=== PATIENT | female | born 1945 | race Caucasian/White ===

== ENCOUNTER 2020-04-09 09:20 | Outpatient (CLI) | payer MEDICARE, SELFPAY ==
--- NOTE | ~2020-04-09 | MM_ITS ---
EXAMINATION: MM screening [facility] BI w bobby HISTORY: Screening mammogram TECHNIQUE: Craniocaudal and mediolateral oblique 3-D tomosynthesis images were obtained and synthetic 2-D images were generated. CAD analysis was submitted and interpreted. COMPARISON: 02/09/2018, 05/05/2016, 02/14/2014 BREAST PARENCHYMAL COMPOSITION: The breasts are heterogeneously dense, which may obscure small masses . FINDINGS: Scattered benign-appearing calcifications are present. There is no evidence of suspicious m ass, calcification, or architectural distortion to suggest malignancy in either breast. There has bee n no suspicious interval change. IMPRESSION: 1. No mammographic evidence of malignancy. 2. Recommend routine screening mammography in one year. BI-RADS Category 2: Benign finding(s). Reviewed, dictated and finalized at location A.
== END 2020-04-09 09:21 | disposition home or self-care (01) ==
PROVIDERS: PCP Internal Medicine; Visit Provider Internal Medicine
DX: Z12.31 Encounter for screening mammogram for malignant neoplasm of breast (principal)
CPT/HCPCS: 77063; 77067

== ENCOUNTER 2021-06-30 10:28 | Outpatient (CLI) | payer MEDICARE, SELFPAY ==
--- NOTE | ~2021-06-30 | MM_ITS ---
EXAMINATION: MM screening [facility] BI w bobby HISTORY: Screening mammogram TECHNIQUE: Craniocaudal and mediolateral oblique 3-D tomosynthesis images were obtained and synthetic 2-D images were generated. CAD analysis was submitted and interpreted. COMPARISON: 04/09/2020, 02/09/2018, 05/05/2016 BREAST PARENCHYMAL COMPOSITION: The breasts are heterogeneously dense, which may obscure small masses . FINDINGS: There is no evidence of suspicious mass, calcification, or architectural distortion to sugg est malignancy in either breast. There has been no suspicious interval change. IMPRESSION: 1. No mammographic evidence of malignancy. 2. Recommend routine screening mammography in one year. BI-RADS Category 2: Benign finding(s). Reviewed, dictated and finalized at location A. GATOR HUNTER
== END 2021-06-30 10:29 | disposition home or self-care (01) ==
LOC: ANHIMG 10:31
PROVIDERS: PCP Internal Medicine; Visit Provider Internal Medicine
DX: Z12.31 Encounter for screening mammogram for malignant neoplasm of breast (principal)
CPT/HCPCS: 77063; 77067

== ENCOUNTER 2022-07-02 10:44 | Outpatient (CLI) | payer MEDICARE, SELFPAY ==
--- NOTE | ~2022-07-02 | MM_ITS ---
EXAMINATION: MM screening [facility] w bobby HISTORY: Screening TECHNIQUE: Craniocaudal and mediolateral oblique 3-D tomosynthesis images were obtained and synthetic 2-D images were generated. CAD analysis was submitted and interpreted. COMPARISON: Comparison to multiple prior studies sequentially, with oldest reviewed study dated 09/19. BREAST PARENCHYMAL COMPOSITION: The breasts are heterogeneously dense, which may obscure small masses . FINDINGS: There is no evidence of suspicious mass, calcification, or architectural distortion to sugg est malignancy in either breast. There has been no suspicious interval change. IMPRESSION: 1. No mammographic evidence of malignancy. 2. Recommend routine screening mammography in one year. BI-RADS Category 1: Negative Reviewed, dictated and finalized at location A. EGATE CONVEYOR OPERATOR
== END 2022-07-02 10:45 | disposition home or self-care (01) ==
PROVIDERS: PCP Internal Medicine; Visit Provider Internal Medicine
DX: Z12.31 Encounter for screening mammogram for malignant neoplasm of breast (principal)
CPT/HCPCS: 77063; 77067

== ENCOUNTER 2024-01-24 11:00 | Outpatient (RCR) | payer MEDICARE, SELFPAY ==
--- NOTE | 2023-12-20 12:37 | OPREHPOC ---
Outpatient Therapy Plan of Care This is a Multidisciplinary Plan of Care that may contain components documented by all disciplines (PT, OT, and ST.) PT Problem 1 PT Problem #1 Knowledge Deficit PT Goal 1 Goal [place]ickey with HEP Target Visit 4 PT Problem 2 PT Problem #2 Impaired Range of Motion PT Goal 1 Goal Improve R knee flexion to 120+ degrees to improve functional squat Target Visit 10 PT Goal 2 Goal Demonstrate 2 cm+ reduction in knee joint line edema measure indicating soft tissue healing Target Visit 10 PT Problem 3 PT Problem #3 Impaired Strength PT Goal 1 Goal Improve gross R knee strength to 5/5 to improve stability with walking and single leg activity Target Visit 10 PT Goal 2 Goal Improve yani hip strength to 4+/5 to improve stability with walking and ADLs Target Visit 10 PT Problem 4 PT Problem #4 Impaired Gait PT Goal 1 Goal Ambulate independently of AD Target Visit 10
--- NOTE | 2023-12-20 12:37 | PTOPEVAL1 ---
Assessment and note entered by Jeffrey Chappell, PT Evaluation Information Assessment Status Evaluation Diagnosis History of Right TKA, Primary osteoarthritis Onset 11/15/23 Subjective Information Reports that she has been noticing some pain in the back and bilateral knee following Right TKA in November. She is really limited right now by pain in knee and back. She is not currently taking pain medication outside of Tylenol. Patient was independent prior to surgery. She has 14 stairs into basement and has started working on them. She has been doing home health up until now. She has no trouble sleeping. Her swelling is all base don dependence as it occurs as soon as she gets up in the morning. Reported Pain Level Pain Score 3: Self Report Assessment PT Clinical Summary Patient presents with minor loss in knee flexion motion, weakness of yani LE, and gait dependence on wheeled walker. Patient will benefit form skilled therapy to improve LE edema, weakness and return to independent gait for improved mobility and safety in home and community. Patient edema appears to be gravity dependent and has made improvement since surgery. Plan of Care Interventions Gait Training,Hot Pack/Cold Pack,Intermittent Compression,Manual Therapy,Neuro Re-education, Therapeutic Activities,Therapeutic Exercise PT Services Indicated Yes Treatment Frequency and 2x/week for 10 visits Duration These treatments will address the objective and functional deficits as defined above. The patient will be advanced safely and appropriately in order for the patient to progress towards his/her prior level of function. Additional exercises will be introduced and as well as a comprehensive home exercise program upon discharge, if needed, ?to ensure carryover of functional gains achieved in the clinic. This treatment plan has been reviewed and agreement upon by the patient.
--- NOTE | 2024-01-24 11:49 | PTOPDC ---
Assessment and note entered by Italia Pacheco, PT Discharge Report Assessment Status Discharge Diagnosis History of Right TKA, Primary osteoarthritis Onset 11/15/23 Subjective Information doing good at home; use cane sometimes, due to dizziness and back pain; still use ice; doing OK on stairs; doing the exercises 2x/day; doing everything but shopping-- cannot walk that far to do the shopping; cannot tolerate sitting too long knee hurts; Reported Pain Level Pain Score 1: Self Report Additional Pain Score Comments pain range in the past week 1-08/21; decrease pain with ice, moving knee; Assessment PT Clinical Summary Karen has received 10 PT sessions. Compared to the initial eval: knee ROM increased to (-5') to 120'; increase strength of R hip and knee; indep with HEP, ambulation with good gait pattern, without assistive device. Self assessment with LE functional scale rating from 65 to 44% limitation in activity; decreased edema with circumferential measurements. The goals were achieved, except knee extension 0'. Discharge PT services. She is continue with her HEP. Plan of Care PT Services Indicated No
== END 2024-01-24 13:45 | disposition home or self-care (01) ==
LOC: ANHPT 11:00
PROVIDERS: PCP Internal Medicine; Visit Provider Orthopaedic Surgery
DX: Z47.1 Aftercare following joint replacement surgery (principal); M17.0 Bilateral primary osteoarthritis of knee; Z96.653 Presence of artificial knee joint, bilateral
CPT/HCPCS: 97014; 97016; 97110; 97116; 97140; 97161; 97530; G0283